=== PATIENT | female | born 1950 | race Caucasian/White ===

== ENCOUNTER 2016-09-07 04:47 | Inpatient (IN) | payer BC, MEDICARE ==
--- NOTE | ~2016-09-07 | OP ---
Record Of Operation [facility] [address] [place]. [address] NAME: SARMAD WILLS : 46 STATUS : ADM IN PAT#: [id number] AGE: 65 ADM/REG DATE : 09/07/16 MR#: [id number] REPORT SERV DATE: 09/07/16 DICTATED BY: PALAK ZHOU JR. DATE: 09/07/16 REPORT STATUS : Draft TRANSCRIBED BY: MODL DATE: 09/07/16 DATE OF PROCEDURE: 09/07/2016 PREOPERATIVE DIAGNOSES: Metastatic esophageal cancer, enlarging pericardial effusion, and bilateral pleural effusions. POSTOPERATIVE DIAGNOSES: Metastatic esophageal cancer, enlarging pericardial effusion, and bilateral pleural effusions. NAME OF OPERATION: Right thoracoscopy, pericardial window with pericardial biopsy, right parietal pleural biopsy, complete decortication, chemical pleurodesis with Betadine, intercostal nerve block. CHAPLAIN RESIDENT: Vahid Castillo. RESIDENT SURGEON: Adams Romeo MD ANESTHESIA: General endotracheal. FINDINGS: The patient was noted to have a large right pleural effusion and moderate-sized pericardial effusion. The lung was partially trapped. We were able to get the lung fully re-expanded. The pleural and pericardial fluid were removed. The fluid was sent for cultures and cytology. A section of pericardium and parietal pleura were also sent for pathology. Final pathology is pending. There was good reexpansion of all three lobes of the lung at the end of the case. DETAILS OF OPERATION: After adequate general anesthesia, the patient was intubated. The left-sided double lumen endotracheal tube was then placed. The patient then positioned in the left lateral decubitus position. The right chest was prepped and draped in routine sterile fashion. A small incision was made overlying the lower intercostal space. Through a single incision site, the above findings were noted. The fluid was evacuated. A pericardial window was performed relieving the pericardial tamponade. A section of pericardium was sent for pathology. Right parietal pleural biopsy was then performed. The pleura sent to Pathology. The lung was then decorticated. We were able to get good reexpansion of all three lobes of the lung. Chemical pleurodesis was then performed with Betadine. An intercostal block was performed. A 32-Greenlandic chest tube was placed. The lung was reinflated. The trocar sites were closed with running Vicryl sutures. The skin was closed with running monofilament suture. A Dermabond dressing was applied. The procedure was terminated at this point. The patient tolerated the procedure well and taken back to recovery room in stable condition. SHELLY/PAULA Palak Record Of [address] [place]. [address] NAME: SARMAD WILLS : 46 STATUS : ADM IN PAT#: [id number] AGE: 65 ADM/REG DATE : 09/07/16 MR#: [id number] REPORT SERV DATE: 09/07/16 DICTATED BY: PALAK ZHOU JR. DATE: 09/07/16 REPORT STATUS : Draft TRANSCRIBED BY: PAULA DATE: 09/07/16 Kelly Hernandez M.D. / [id number] CC: Silvestre Sierra Jr., M.D. Michael Stipanov, M.D.
--- NOTE | ~2016-09-07 | DS ---
Discharge Summary [facility] [address] [place]. [address] NAME: SARMAD WILLS : 46 STATUS : DIS IN PAT#: [id number] AGE: 66 ADM/REG DATE : 09/07/16 MR#: [id number] REPORT SERV DATE: 09/30/16 DICTATED BY: PALAK MENDOZA JR. DATE: 09/29/16 REPORT STATUS : Draft TRANSCRIBED BY: PAULA DATE: 09/29/16 Data Collection from hospitalization DISCHARGE DIAGNOSES: 1. Metastatic esophageal cancer. 2. Enlarging pericardial effusion. 3. Bilateral pleural effusions. 4. Labile blood pressure. 5. Anemia. 6. Anxiety. 7. Hypokalemia. 8. Mixed hyperlipidemia. 9. History of renal infarct. 10.History of splenic infarction. 11.Tobacco dependent. 12.History of thrombocytopenia. 13.Tobacco use. CONSULTATIONS: 1. Dr. Saqib Sheppard. 2. Dr. Adilson Watts. PROCEDURES PERFORMED: Right thoracoscopy, pericardial window with pericardial biopsy, right parietal pleura biopsy, complete decortication, chemical pleurodesis with Betadine, and intercostal nerve block, 09/07/2016. PATHOLOGY: Pleural fluid left cytology (smears, ThinPrep, and cell block) - malignant cells consistent with adenocarcinoma of the esophagus. See comment. Pericardium biopsy - focal malignant cells consistent with adenocarcinoma of the esophagus. Pleura right biopsy - metastatic adenocarcinoma from the esophagus. MEDICATIONS: Marinol 5 mg twice a day, Lovenox 60 mg subcutaneously twice a day, Dilaudid 2 mg every four hours as needed, Levsin 0.125 mg every four hours as needed, Ativan 0.5 mg three times a day as needed, Prilosec 20 mg every morning, Klor-Con 20 mEq twice a day, Zocor 20 mg every morning, Nucynta 50-100 mg every four hours as needed, Ultram 50-100 mg every four hours as needed. CONDITION AT DISCHARGE: Stable. DISPOSITION: The patient was discharged home on a regular diet with activities as instructed to be followed by hospice. She would follow up with me as scheduled. HOSPITAL COURSE: This is a 66-year-old female who had been referred to me by Dr. Londono for pericardial and pleural effusion. The patient has a history of esophageal cancer. 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 She elected to have surgery for this and underwent radiation and chemotherapy. 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 Over the past two weeks prior to this admission, she had developed Discharge Summary [facility] [address] [place]. [address] NAME: SARMAD WILLS : 46 STATUS : DIS IN PAT#: [id number] AGE: 66 ADM/REG DATE : 09/07/16 MR#: [id number] REPORT SERV DATE: 09/30/16 DICTATED BY: PALAK MENDOZA JR. DATE: 09/29/16 REPORT STATUS : Draft TRANSCRIBED BY: PAULA DATE: 09/29/16 shortness of breath with exertion and occasional chest discomfort and abdominal pain. This led to a repeat CT scan and echocardiogram. She was found to have increasing circumferential pericardial effusion, bilateral pleural effusions and progression of retroperitoneal lymph node, all concerning for progression of her cancer. Treatment options were discussed and it was elected to proceed with surgical intervention. She was admitted to the hospital at this time for further evaluation and treatment. Upon admission, she was taken to the operating room where she underwent the above-mentioned procedure. She tolerated this well, and there were no complications. On postop day #1, she was afebrile, O2 saturation was 96% on room air. Chest x-ray showed small right apical pneumothorax and left effusion that was mild. Her wounds were clean, dry, and intact. She had decreased breath sounds in the lung bases. We encouraged her to ambulate in the molina. Reglan was given. On the , she had decreased breath sounds in her lung bases, left greater than right. Her abdomen was soft, nontender, and nondistended. Her nausea had improved. Platelets continued to decrease. The level was now 12. She was very sore throughout. Her chest tube remained in place. Toradol was added. The patient was seen by Dr. Saqib Sheppard. After discussing the results of her pathology, the patient was tearful. She was comfortable without any signs of bleeding. Chest tube remained in place. She was felt to have likely consumptive DIC from cancer. If her platelet count went below 10, Lovenox would be discontinued. It was discussed with the patient that there were few options. MSI testing was going to be performed. If MSI was high, we would plan on Keytruda. If MSI was low, she would see Dr. Londono and consider hospice care. On 09/10/2016, she was in a normal sinus rhythm. She was afebrile. Her pain was controlled. Chest x-ray showed tiny left apical pneumothorax that was unchanged. There was no significant left effusion, right effusion was stable. Her anemia was stable. Her platelet count had improved. She did have some dyspnea when she awoke from nap as well as some pain. This was at the chest tube site with deep breathing. It was not felt that she had a pulmonary embolus. It was felt that her chest tube effusion and deconditioning explained some of her mild dyspnea. On the , she did have shortness of breath. Platelet count was 18, creatinine was 1.8. Her white count was decreasing. She did report fatigue. She had a dry mouth. Shortness of breath improved with morphine sulfate. She was anxious. She was felt to have acute kidney injury. She did have volume depletion. She had recent NSAIDs. It was hopeful that this would improve with IV fluids and time. Lovenox was changed to Eliquis. The patient had met with hospice previously. The patient said she wanted to go home the following day regardless of her renal function. The next day, she was seen by Dr. Adilson Watts. The patient had developed rapid rate atrial fibrillation. Creatinine level had improved. She was going to be placed on amiodarone. Discharge planning continued. On 09/14/2016, the patient wanted to go home. She agreed to hospice care. The focus was going to be placed on comfort. The patient continued to be in atrial fibrillation with rapid ventricular response despite amiodarone drip/bolus. It was felt that going home with hospice was very reasonable given the extent of her cancer and her decline. Discharge instructions were given. Due to her stable condition, she was discharged home with hospice with the above-stated instructions. Information collected by: Hilaria Bae Discharge Summary [facility] [id number] [place]. [address] NAME: SARMAD WILLS : 46 STATUS : DIS IN PAT#: [id number] AGE: 66 ADM/REG DATE : 09/07/16 MR#: [id number] REPORT SERV DATE: 09/30/16 DICTATED BY: PALAK MENDOZA JR. DATE: 09/29/16 REPORT STATUS : Draft TRANSCRIBED BY: PAULA DATE: 09/29/16 I submit the above information as my discharge summary. EMMA/PAULA Palak Mendoza Jr., M.D. / [id number] CC: Silvestre Sierra Jr., M.D. William Warren, M.D. Davey B. Daniel, M.D.
[~2016-09-07 04:47] MED LIST: ATV.5 PO; DIL2TAB PO; ENOXAPARIN SC; KLOR-CON M2020 MEQ PO; LEVSINTAB PO; LOVENOX60 SC; MARI5 PO; PRILO PO; ZOCOR20 PO
[2016-09-07 06:15] LABS: BASOPHILS 0.2 %; BASOPHILS ABSOLUTE 0.02 10/3/uL (0.0-0.16); EOSINOPHILS 0.5 %; EOSINOPHILS ABSOLUTE 0.05 10/3/uL (0.0-0.53); HEMOGLOBIN 11.1 g/dL (12.0-16.0); IMMATURE GRANULOCYTES 0.4 %; IMMATURE GRANULOCYTES ABSOLUTE 0.04 10/3/uL (0.0-0.11); LYMPHOCYTES 15.7 %; LYMPHOCYTES ABSOLUTE 1.45 10/3/uL (0.67-4.30); MEAN CORPUS HGB CONC 34.3 g/dL (32.0-36.0); MEAN CORPUSCULAR HEMOGLOB 34.3 pg (26.0-34.0); MEAN PLATELET VOLUME 11.8 fL (9.2-13.0); MONOCYTES 8.7 %; NEUTROPHILS 74.5 %; NEUTROPHILS ABSOLUTE 6.87 10/3/uL (2.02-8.40); RED CELL COUNT 3.24 10/6/uL (4.0-5.6)
[2016-09-07 06:21] LABS: INTERNATIONAL NORMAL RATI 1.3 UNITS (-); PROTIME (NOT ORD) 16.1 SEC (12.0-14.5)
[2016-09-07 06:22] LABS: HEMATOCRIT 32.4 % (36.0-48.0); PLATELET COUNT 36 10/3/uL (150-400); RBC DISTRIBUTION WIDTH 13.1 % (12.0-16.0); WHITE BLOOD CELLS 9.2 10/3/uL (4.5-10.5)
[2016-09-07 06:23] LABS: MANUAL DIFF NO %
[2016-09-07 06:34] LABS: A/G RATIO 1.1 (0.7-1.9); ALBUMIN 3.6 G/DL (3.5-5.0); ALKALINE PHOSPHATASE 59 U/L (45-117); BUN (BLOOD UREA NITROGEN) 17 MG/DL (6-23); CALCIUM, SERUM 9.1 MG/DL (8.5-10.4); CHLORIDE, SERUM 100 MMOL/L (96-112); CO2 (CARBON DIOXIDE) 26 MMOL/L (24-34); GFR AFRICAN AMERICAN 104 ML/MIN (>=60); GFR NON AFRICAN AMERICAN 90 ML/MIN (>=60); GLOBULIN 3.2 G/DL (2.5-4.1); GLUCOSE, SERUM 110 MG/DL (60-99); POTASSIUM, SERUM 3.5 MMOL/L (3.5-5.3); SGOT(AST) 27 U/L (5-40); SGPT(ALT) 15 U/L (5-65); SODIUM, SERUM 135 MMOL/L (135-148); TOTAL BILIRUBIN 0.8 MG/DL (0-1.2); TOTAL PROTEIN 6.8 G/DL (6.0-8.5)
[2016-09-07 06:39] LABS: MACROCYTES 1+ (5-10/OIF) (0-5/OIF)
[2016-09-08 06:03] LABS: BUN (BLOOD UREA NITROGEN) 20 MG/DL (6-23); CALCIUM, SERUM 8.4 MG/DL (8.5-10.4); CHLORIDE, SERUM 101 MMOL/L (96-112); CO2 (CARBON DIOXIDE) 28 MMOL/L (24-34); CREATININE 0.85 MG/DL (0.55-1.02); GFR AFRICAN AMERICAN 82 ML/MIN (>=60); GFR NON AFRICAN AMERICAN 71 ML/MIN (>=60); GLUCOSE, SERUM 125 MG/DL (60-99); POTASSIUM, SERUM 4.3 MMOL/L (3.5-5.3); SODIUM, SERUM 136 MMOL/L (135-148)
[2016-09-08 06:08] LABS: BASOPHILS 0.2 %; BASOPHILS ABSOLUTE 0.03 10/3/uL (0.0-0.16); EOSINOPHILS 0.1 %; EOSINOPHILS ABSOLUTE 0.01 10/3/uL (0.0-0.53); HEMATOCRIT 32.6 % (36.0-48.0); HEMOGLOBIN 10.9 g/dL (12.0-16.0); IMMATURE GRANULOCYTES 0.4 %; IMMATURE GRANULOCYTES ABSOLUTE 0.05 10/3/uL (0.0-0.11); LYMPHOCYTES 16.1 %; LYMPHOCYTES ABSOLUTE 2.17 10/3/uL (0.67-4.30); MEAN CORPUS HGB CONC 33.4 g/dL (32.0-36.0); MEAN CORPUSCULAR HEMOGLOB 34.4 pg (26.0-34.0); MEAN CORPUSCULAR VOLUME 102.8 fL (80-100); MONOCYTES 8.8 %; MONOCYTES ABSOLUTE 1.19 10/3/uL (0.21-1.20); NEUTROPHILS 74.4 %; NEUTROPHILS ABSOLUTE 10.02 10/3/uL (2.02-8.40); RBC DISTRIBUTION WIDTH 13.2 % (12.0-16.0); RED CELL COUNT 3.17 10/6/uL (4.0-5.6)
[2016-09-08 06:10] LABS: MANUAL DIFF NO %; PLATELET COUNT 20 10/3/uL (150-400); WHITE BLOOD CELLS 13.5 10/3/uL (4.5-10.5)
[2016-09-08 06:33] LABS: MACROCYTES 1+ (5-10/OIF) (0-5/OIF)
[2016-09-09 04:59] LABS: BASOPHILS 0.3 %; BASOPHILS ABSOLUTE 0.03 10/3/uL (0.0-0.16); EOSINOPHILS 0.3 %; EOSINOPHILS ABSOLUTE 0.03 10/3/uL (0.0-0.53); HEMATOCRIT 28.9 % (36.0-48.0); HEMOGLOBIN 9.7 g/dL (12.0-16.0); IMMATURE GRANULOCYTES 0.4 %; IMMATURE GRANULOCYTES ABSOLUTE 0.04 10/3/uL (0.0-0.11); LYMPHOCYTES 13.3 %; LYMPHOCYTES ABSOLUTE 1.39 10/3/uL (0.67-4.30); MANUAL DIFF NO %; MEAN CORPUS HGB CONC 33.6 g/dL (32.0-36.0); MEAN CORPUSCULAR HEMOGLOB 34.5 pg (26.0-34.0); MEAN CORPUSCULAR VOLUME 102.8 fL (80-100); MONOCYTES 9.3 %; MONOCYTES ABSOLUTE 0.97 10/3/uL (0.21-1.20); NEUTROPHILS 76.4 %; NEUTROPHILS ABSOLUTE 7.99 10/3/uL (2.02-8.40); PLATELET COUNT 12 10/3/uL (150-400); RBC DISTRIBUTION WIDTH 13.1 % (12.0-16.0); RED CELL COUNT 2.81 10/6/uL (4.0-5.6); WHITE BLOOD CELLS 10.5 10/3/uL (4.5-10.5)
[2016-09-09 05:13] LABS: BUN (BLOOD UREA NITROGEN) 18 MG/DL (6-23); CALCIUM, SERUM 8.2 MG/DL (8.5-10.4); CHLORIDE, SERUM 101 MMOL/L (96-112); CO2 (CARBON DIOXIDE) 26 MMOL/L (24-34); GFR AFRICAN AMERICAN 88 ML/MIN (>=60); GFR NON AFRICAN AMERICAN 76 ML/MIN (>=60); GLUCOSE, SERUM 108 MG/DL (60-99); POTASSIUM, SERUM 4.5 MMOL/L (3.5-5.3); SODIUM, SERUM 134 MMOL/L (135-148)
[2016-09-09 05:31] LABS: MACROCYTES 1+ (5-10/OIF) (0-5/OIF)
[2016-09-10 04:53] LABS: BASOPHILS 0.2 %; BASOPHILS ABSOLUTE 0.02 10/3/uL (0.0-0.16); EOSINOPHILS 0.5 %; EOSINOPHILS ABSOLUTE 0.05 10/3/uL (0.0-0.53); HEMATOCRIT 26.7 % (36.0-48.0); HEMOGLOBIN 9.1 g/dL (12.0-16.0); IMMATURE GRANULOCYTES 0.3 %; IMMATURE GRANULOCYTES ABSOLUTE 0.03 10/3/uL (0.0-0.11); LYMPHOCYTES 9.7 %; LYMPHOCYTES ABSOLUTE 0.96 10/3/uL (0.67-4.30); MEAN CORPUS HGB CONC 34.1 g/dL (32.0-36.0); MEAN CORPUSCULAR HEMOGLOB 34.6 pg (26.0-34.0); MEAN CORPUSCULAR VOLUME 101.5 fL (80-100); MONOCYTES 7.1 %; NEUTROPHILS 82.2 %; RBC DISTRIBUTION WIDTH 13.1 % (12.0-16.0); RED CELL COUNT 2.63 10/6/uL (4.0-5.6); WHITE BLOOD CELLS 9.9 10/3/uL (4.5-10.5)
[2016-09-10 04:56] LABS: MANUAL DIFF NO %; PLATELET COUNT 18 10/3/uL (150-400)
[2016-09-10 04:59] LABS: INTERNATIONAL NORMAL RATI 1.4 UNITS (-)
[2016-09-10 05:00] LABS: FIBRINOGEN 323 MG/DL (230-462)
[2016-09-10 05:06] LABS: BUN (BLOOD UREA NITROGEN) 17 MG/DL (6-23); CALCIUM, SERUM 8.3 MG/DL (8.5-10.4); CHLORIDE, SERUM 102 MMOL/L (96-112); CO2 (CARBON DIOXIDE) 24 MMOL/L (24-34); CREATININE 0.77 MG/DL (0.55-1.02); GFR AFRICAN AMERICAN 93 ML/MIN (>=60); GFR NON AFRICAN AMERICAN 80 ML/MIN (>=60); GLUCOSE, SERUM 100 MG/DL (60-99); POTASSIUM, SERUM 4.5 MMOL/L (3.5-5.3); SODIUM, SERUM 134 MMOL/L (135-148)
[2016-09-10 05:11] LABS: MACROCYTES 1+ (5-10/OIF) (0-5/OIF)
[2016-09-11 05:27] LABS: HEMOGLOBIN 10.7 g/dL (12.0-16.0); MEAN CORPUS HGB CONC 33.5 g/dL (32.0-36.0); MEAN CORPUSCULAR VOLUME 101.3 fL (80-100); RBC DISTRIBUTION WIDTH 13.2 % (12.0-16.0); RED CELL COUNT 3.15 10/6/uL (4.0-5.6)
[2016-09-11 05:32] LABS: HEMATOCRIT 31.9 % (36.0-48.0); PLATELET COUNT 19 10/3/uL (150-400); WHITE BLOOD CELLS 29.4 10/3/uL (4.5-10.5)
[2016-09-11 05:33] LABS: MANUAL DIFF YES %
[2016-09-11 05:42] LABS: A/G RATIO 0.8 (0.7-1.9); ALKALINE PHOSPHATASE 61 U/L (45-117); CALCIUM, SERUM 8.6 MG/DL (8.5-10.4); CHLORIDE, SERUM 101 MMOL/L (96-112); CO2 (CARBON DIOXIDE) 22 MMOL/L (24-34); GLOBULIN 3.4 G/DL (2.5-4.1); GLUCOSE, SERUM 114 MG/DL (60-99); POTASSIUM, SERUM 5.2 MMOL/L (3.5-5.3); SGOT(AST) 35 U/L (5-40); SGPT(ALT) 16 U/L (5-65); SODIUM, SERUM 133 MMOL/L (135-148); TOTAL BILIRUBIN 0.7 MG/DL (0-1.2)
[2016-09-11 05:45] LABS: BUN (BLOOD UREA NITROGEN) 23 MG/DL (6-23)
[2016-09-11 05:46] LABS: ALBUMIN 2.6 G/DL (3.5-5.0); CREATININE 1.41 MG/DL (0.55-1.02); GFR AFRICAN AMERICAN 45 ML/MIN (>=60); GFR NON AFRICAN AMERICAN 38 ML/MIN (>=60)
[2016-09-11 05:47] LABS: INTERNATIONAL NORMAL RATI 1.4 UNITS (-); PROTIME (NOT ORD) 17.4 SEC (12.0-14.5)
[2016-09-11 06:41] LABS: BAND NEUTROPHILS 3 %; LYMPHOCYTES 3 %; LYMPHOCYTES ABSOLUTE (CALC) 0.88 10/3/uL (0.67-4.30); MACROCYTES 1+ (5-10/OIF) (0-5/OIF); MONOCYTES 2 %; MONOCYTES ABSOLUTE (CALC) 0.59 10/3/uL (0.21-1.20); NEUTROPHILS ABSOLUTE (CALC) 27.93 10/3/uL (2.02-8.40); SEGMENTED NEUTROPHIL (0) 92 %; TOTAL NUCLEATED CELLS 100
[2016-09-12 05:10] LABS: BASOPHILS 0.2 %; BASOPHILS ABSOLUTE 0.03 10/3/uL (0.0-0.16); EOSINOPHILS 0.3 %; EOSINOPHILS ABSOLUTE 0.05 10/3/uL (0.0-0.53); HEMOGLOBIN 9.1 g/dL (12.0-16.0); IMMATURE GRANULOCYTES 0.3 %; IMMATURE GRANULOCYTES ABSOLUTE 0.05 10/3/uL (0.0-0.11); LYMPHOCYTES 8.4 %; LYMPHOCYTES ABSOLUTE 1.22 10/3/uL (0.67-4.30); MEAN CORPUS HGB CONC 33.5 g/dL (32.0-36.0); MEAN CORPUSCULAR HEMOGLOB 33.6 pg (26.0-34.0); MEAN CORPUSCULAR VOLUME 100.4 fL (80-100); MONOCYTES 9.8 %; MONOCYTES ABSOLUTE 1.43 10/3/uL (0.21-1.20); NEUTROPHILS ABSOLUTE 11.74 10/3/uL (2.02-8.40); RBC DISTRIBUTION WIDTH 13.1 % (12.0-16.0); RED CELL COUNT 2.71 10/6/uL (4.0-5.6)
[2016-09-12 05:12] LABS: HEMATOCRIT 27.2 % (36.0-48.0); MANUAL DIFF NO %; PLATELET COUNT 18 10/3/uL (150-400); WHITE BLOOD CELLS 14.5 10/3/uL (4.5-10.5)
[2016-09-12 05:24] LABS: ALBUMIN 2.3 G/DL (3.5-5.0); CALCIUM, SERUM 8.2 MG/DL (8.5-10.4); CHLORIDE, SERUM 100 MMOL/L (96-112); CO2 (CARBON DIOXIDE) 21 MMOL/L (24-34); CREATININE 1.82 MG/DL (0.55-1.02); GFR AFRICAN AMERICAN 33 ML/MIN (>=60); GFR NON AFRICAN AMERICAN 28 ML/MIN (>=60); GLUCOSE, SERUM 95 MG/DL (60-99); PHOSPHORUS, SERUM 4.8 MG/DL (2.5-4.5); POTASSIUM, SERUM 5.1 MMOL/L (3.5-5.3); SODIUM, SERUM 131 MMOL/L (135-148)
[2016-09-12 05:26] LABS: BUN (BLOOD UREA NITROGEN) 36 MG/DL (6-23)
[2016-09-12 06:41] LABS: HELMET CELLS OCC (0-2/OIF); MACROCYTES 1+ (5-10/OIF) (0-5/OIF); POLYCHROMASIA 1+ (2-5/OIF) (0-1/OIF); TARGET CELLS OCC (1-2/OIF) (0-1/OIF); TEARDROP SHAPED RBCS OCC (0-2/OIF)
[2016-09-13 05:22] LABS: BASOPHILS 0.1 %; BASOPHILS ABSOLUTE 0.02 10/3/uL (0.0-0.16); EOSINOPHILS 0.2 %; EOSINOPHILS ABSOLUTE 0.03 10/3/uL (0.0-0.53); HEMATOCRIT 26.7 % (36.0-48.0); IMMATURE GRANULOCYTES 0.5 %; IMMATURE GRANULOCYTES ABSOLUTE 0.08 10/3/uL (0.0-0.11); LYMPHOCYTES 7.1 %; LYMPHOCYTES ABSOLUTE 1.11 10/3/uL (0.67-4.30); MEAN CORPUS HGB CONC 33.7 g/dL (32.0-36.0); MEAN CORPUSCULAR HEMOGLOB 33.6 pg (26.0-34.0); MEAN CORPUSCULAR VOLUME 99.6 fL (80-100); MONOCYTES ABSOLUTE 1.41 10/3/uL (0.21-1.20); NEUTROPHILS 83.1 %; NEUTROPHILS ABSOLUTE 13.02 10/3/uL (2.02-8.40); RBC DISTRIBUTION WIDTH 13.3 % (12.0-16.0); RED CELL COUNT 2.68 10/6/uL (4.0-5.6); WHITE BLOOD CELLS 15.7 10/3/uL (4.5-10.5)
[2016-09-13 05:23] LABS: PLATELET COUNT 20 10/3/uL (150-400)
[2016-09-13 05:24] LABS: MANUAL DIFF NO %
[2016-09-13 05:32] LABS: CALCIUM, SERUM 8.3 MG/DL (8.5-10.4); CHLORIDE, SERUM 102 MMOL/L (96-112); CO2 (CARBON DIOXIDE) 21 MMOL/L (24-34); GLUCOSE, SERUM 87 MG/DL (60-99); POTASSIUM, SERUM 4.9 MMOL/L (3.5-5.3); SODIUM, SERUM 133 MMOL/L (135-148)
[2016-09-13 05:34] LABS: BUN (BLOOD UREA NITROGEN) 47 MG/DL (6-23); CREATININE 1.16 MG/DL (0.55-1.02); GFR AFRICAN AMERICAN 56 ML/MIN (>=60); GFR NON AFRICAN AMERICAN 49 ML/MIN (>=60)
[2016-09-13 05:35] LABS: TROPONIN I 0.31 NG/ML (<0.05)
[2016-09-13 06:34] LABS: ANISOCYTOSIS 1+ (5-10/OIF) (0-5/OIF); HELMET CELLS OCC (0-2/OIF); POIKILOCYTOSIS 1+ (5-10/OIF) (0-5/OIF); POLYCHROMASIA 1+ (2-5/OIF) (0-1/OIF)
[2016-09-13 06:35] LABS: TEARDROP SHAPED RBCS OCC (0-2/OIF)
[2016-09-14] MEDS ORDERED: NUCYNTA50 MG PO (11:37)
[2016-09-14] MEDS ORDERED: ULTRAM50 PO (11:38)
== END 2016-09-14 12:14 | disposition hospice, home (50) | DRG 163 ==
LOC: SDC/OF 04:47 → 5NO 09:56
PROVIDERS: Internal Medicine Hematology & Oncology; Nurse Practitioner Acute Care; Thoracic Surgery (Cardiothoracic Vascular Surgery)
PROC: 02BN4ZX Excision of Pericardium, Percutaneous Endoscopic Approach, Diagnostic (ICD-10-PCS; 2016-09-07)
PROC: 0BDN4ZZ Extraction of Right Pleura, Percutaneous Endoscopic Approach (ICD-10-PCS; 2016-09-07)
PROC: 3E0L3GC Introduction of Other Therapeutic Substance into Pleural Cavity, Percutaneous Approach (ICD-10-PCS; 2016-09-07)
PROC: 3E0T3BZ Introduction of Anesthetic Agent into Peripheral Nerves and Plexi, Percutaneous Approach (ICD-10-PCS; 2016-09-07)
PROC: 0W9D4ZZ Drainage of Pericardial Cavity, Percutaneous Endoscopic Approach (ICD-10-PCS; principal; 2016-09-07 06:45)
DX: J90 Pleural effusion, not elsewhere classified (principal); D65 Disseminated intravascular coagulation [defibrination syndrome]; N17.9 Acute kidney failure, unspecified; C15.5 Malignant neoplasm of lower third of esophagus; I31.3 Pericardial effusion (noninflammatory); F41.9 Anxiety disorder, unspecified; E78.2 Mixed hyperlipidemia
CPT/HCPCS: 36415; 71020; 80048; 80053; 80069; 82962; 83615; 84484; 85025; 85384; 85610; 85730; 86850; 86900; 86901; 87015; 87070; 87075; 87102; 87116; 87205; 87641; 88112; 88305; 88341; 88342; 93005; 94640; A9270-GY; J0282; J0690; J1580; J1885; J2250; J2370; J2405; J2550; J2710; J2765; J2795; J3010; J3370